=== PATIENT | female | born 1950 | race Two or more races ===

== ENCOUNTER 2019-06-05 09:01 | Emergency (ER) | payer OTHER ==
[~2019-06-05] VITALS: Ht 157.5 cm; Wt 74.8 kg
[~2019-06-05 09:01] MED LIST: DIOVAN160 M1; JANUVIA100 MG; NORVASC2.5 MG; SYNTHROID50 MCG; TROPOL
[2019-06-05] MEDS ORDERED: CARDIZEM CD240 MG PO (09:13)
[2019-06-05] MEDS ORDERED: ZESTRIL20 MG PO (09:13)
[2019-06-05] MEDS ORDERED: TIROSINT125 MCG PO (09:14)
== END 2019-06-05 10:25 | disposition home or self-care (01) ==
LOC: ER 09:01
DX: M25.511 Pain in right shoulder (principal)

== ENCOUNTER 2020-08-04 12:49 | Outpatient (CLI) | payer OTHER ==
[~2020-08-04 12:49] MED LIST changes: +CARDIZEM CD240 MG PO; +TIROSINT125 MCG PO; +ZESTRIL20 MG PO
== END 2020-08-04 13:02 | disposition home or self-care (01) ==
LOC: RAD 12:49
PROVIDERS: ATTEND Orthopaedic Surgery
DX: M25.562 Pain in left knee (principal)

== ENCOUNTER 2020-12-15 09:09 | Outpatient (CLI) | payer OTHER | END 2020-12-15 09:15 | disposition home or self-care (01) | LOC: NUCLEAR 09:09 | PROVIDERS: ATTEND Internal Medicine Cardiovascular Disease | DX: I20.1 Angina pectoris with documented spasm (principal) | CPT/HCPCS: 78452; 93017; A9500; J1250 ==

== ENCOUNTER → 2021-02-16 10:16 | Outpatient (CLI) | payer OTHER | END | disposition home or self-care (01) | LOC: LAB 10:16 | PROVIDERS: ATTEND Internal Medicine Cardiovascular Disease | DX: I10 Essential (primary) hypertension (principal); E11.9 Type 2 diabetes mellitus without complications; E03.8 Other specified hypothyroidism; E78.2 Mixed hyperlipidemia; E55.9 Vitamin D deficiency, unspecified; Z12.11 Encounter for screening for malignant neoplasm of colon ==

== ENCOUNTER 2021-07-05 09:21 | Outpatient (CLI) | payer OTHER | END 2021-07-05 09:30 | disposition home or self-care (01) | LOC: LAB 09:21 | PROVIDERS: ATTEND Internal Medicine Cardiovascular Disease | DX: E03.8 Other specified hypothyroidism (principal); E11.9 Type 2 diabetes mellitus without complications; I10 Essential (primary) hypertension; E78.2 Mixed hyperlipidemia ==

== ENCOUNTER 2021-11-25 08:36 | Outpatient (CLI) | payer OTHER | END 2021-11-25 08:46 | disposition home or self-care (01) | LOC: LAB 08:36 | PROVIDERS: ATTEND Internal Medicine Cardiovascular Disease | DX: I10 Essential (primary) hypertension (principal); E11.9 Type 2 diabetes mellitus without complications; E03.9 Hypothyroidism, unspecified; E78.5 Hyperlipidemia, unspecified; Z12.11 Encounter for screening for malignant neoplasm of colon; E55.9 Vitamin D deficiency, unspecified ==

== ENCOUNTER 2021-11-29 07:09 | Outpatient (CLI) | payer OTHER | END 2021-11-29 07:21 | disposition home or self-care (01) | LOC: LAB 07:09 | PROVIDERS: ATTEND Internal Medicine Cardiovascular Disease | DX: E03.9 Hypothyroidism, unspecified (principal); E78.2 Mixed hyperlipidemia; I10 Essential (primary) hypertension; I11.9 Hypertensive heart disease without heart failure; Z12.11 Encounter for screening for malignant neoplasm of colon; E55.9 Vitamin D deficiency, unspecified ==